=== PATIENT | male | born 1945 | race Caucasian/White ===

== ENCOUNTER 2019-03-19 07:46 | Emergency (ER) | payer OTHER ==
[2019-03-19 07:50] VITALS: BP 162/85
--- NOTE | 2019-03-19 07:56 | ED ---
Skin Complaint - HPI Summary HPI Summary: 73-year-old male presents with complaints of allergic reaction. States 3 days ago he had been out side weeding and later that evening started developing a pruritic rash to his left shoulder, neck, and face with swelling around his eyes. States he had a similar reaction in the past to poison jazmin that required treatment with prednisone. States he has been taking diphenhydramine with minimal improvement in his symptoms. Denies fever, chills, visual disturbances , eye redness, drainage, swelling of the lips, tongue, throat, dysphagia, or difficulty breathing. - History of Current Complaint Chief Complaint: EDAllergicReaction Time Seen by Provider: 03/19/19 07:54 Stated Complaint: POISON JAZMIN PER PT Hx Obtained From: Patient Pain Intensity: 0 - Allergy/Home Medications Allergies/Adverse Reactions: Allergies Allergy/AdvReac Type Severity Reaction Status Date / Time typhus vaccine Allergy Unknown Verified 03/19/19 07:51 Reaction Details PMH/Surg Hx/FS Hx/Imm Hx Endocrine/Hematology History: Reports: Hx Diabetes Cardiovascular History: Reports: Hx Hypercholesterolemia, Hx Hypertension Respiratory History: Denies: Hx Asthma, Hx Chronic Obstructive Pulmonary Disease (COPD) Infectious Disease History: No Infectious Disease History: Denies: Traveled Outside the [place] in Last 30 Days - Family History Known Family History: Positive: Non-Contributory - Social History Occupation: Retired Lives: Alone Review of Systems Negative: Fever, Chills Negative: Photophobia, Blurred Vision, Diplopia, Drainage, Erythema Negative: Other - Swelling lips, tongue, or throat Cardiovascular: Negative Negative: Shortness Of Breath Gastrointestinal: Negative Genitourinary: Negative Musculoskeletal: Negative Positive: Rash - See HPI Neurological: Negative All Other Systems Reviewed And Are Negative: Yes Physical Exam - Summary Physical Exam Summary: GENERAL APPEARANCE: Well developed, well nourished, alert and cooperative, and appears to be in no acute distress. EYES: Mild bilateral periorbital edema. Mild Conjunctiva clear. No drainage. PERRL, EOM intact. Vision is grossly intact. EARS: External auditory canals and tympanic membranes clear, hearing grossly intact. NOSE: No nasal discharge. THROAT: No swelling of the lips, tongue, or throat. Pharynx normal. No tonsilar inflammation, swelling, exudate, or lesions. Uvula midline. Airway patent. NECK: Neck supple, non-tender without lymphadenopathy. CARDIAC: Normal S1 and S2. No S3, S4 or murmurs. Rhythm is regular. There is no peripheral edema, cyanosis or pallor. Extremities are warm and well perfused. Capillary refill is less than 2 seconds. Peripheral pulses intact. LUNGS: Clear to auscultation without rales, rhonchi, wheezing or diminished breath sounds. ABDOMEN: Positive bowel sounds. Soft, nondistended, nontender. No guarding or rebound. No masses or hepatosplenomegally. MUSKULOSKELETAL: ROM intact to all extremities. No joint erythema or tenderness. Normal muscular development. Normal gait. SKIN: Confluent, erythematous, maculopapular rash involving the face, anterior neck, and left posterior shoulder. Triage Information Reviewed: Yes Vital Signs On Initial Exam: Initial Vitals Temp Pulse Resp BP Pulse Ox 98.7 F 78 18 162/85 99 03/19/19 07:46 03/19/19 07:46 03/19/19 07:46 03/19/19 07:46 03/19/19 07:46 Vital Signs Reviewed: Yes Diagnostics - Vital Signs Vital Signs Temp Pulse Resp BP Pulse Ox 03/19/19 07:46 98.7 F 78 18 162/85 99 - Laboratory Lab Statement: Any lab studies that have been ordered have been reviewed, and results considered in the medical decision making process. Course/Dx - Course Course Of Treatment: 73-year-old male presents with complaints of allergic reaction. States 3 days ago he had been out side weeding and later that evening started developing a pruritic rash to his left shoulder, neck, and face with swelling around his eyes. States he had a similar reaction in the past to poison jazmin that required treatment with prednisone. States he has been taking diphenhydramine with minimal improvement in his symptoms. Denies fever, chills , visual disturbances, eye redness, drainage, swelling of the lips, tongue, throat, dysphagia, or difficulty breathing. Afebrile. Hypertensive but otherwise vital signs stable. Patient had a confluent, erythematous, maculopapular rash involving the face, anterior neck, and left posterior shoulder with mild bilateral periorbital edema and otherwise unremarkable exam. Patient was given prednisone 60 mg PO in the ED for an allergic reaction to an unknown substance and we will continue him on a prednisone taper. Recommend continued use of the diphenhydramine according to directions as needed for itching. He is to follow-up with his primary care provider in 3 days if his symptoms do not improve. Anticipatory guidance and warning symptoms were reviewed with the patient. Verbalizes understanding and agrees of care. - Differential Diagnoses - Skin Complaint Differential Diagnoses: Allergic Reaction, Cellulitis, Contact Dermatitis, Poison Jazmin, Urticaria - Diagnoses Provider Diagnoses: Allergic reaction Discharge - Sign-Out/Discharge Documenting (check all that apply): Patient Departure Patient Received Moderate/Deep Sedation with Procedure: No - Discharge Plan Condition: Stable Disposition: HOME Prescriptions: predniSONE TAB* [Deltasone 10 MG TAB*] 10 mg PO DAILY #26 tab Patient Education Materials: General Allergic Reaction (ED) Referrals: Karl Chester MD [Primary Care Provider] - 3 Days Additional Instructions: Your were given a dose of prednisone in the Emergency Room for your allergic reaction. We will continue you on a tapering dose over the next few days. Starting tomorrow take prednisone 40 mg (4 tabs) for 2 days, then 30 mg (3 tabs ) for 3 days, then 20 mg (2 tabs) for 3 days, then 10 mg (1 tab) for 3 days, then stop. Continue taking diphenhydramine (Benadryl) according to directions as needed for itching. Follow-up with your primary care provider in 3 days if symptoms are not improving. Return to the emergency room if you develop any swelling to the lips, tongue, or throat, difficulty swallowing, difficulty breathing, or any worsening of symptoms. - Billing Disposition and Condition Condition: STABLE Disposition: Home
[2019-03-19] MEDS ORDERED: predniSONE TAB* 20 MG PO ONE (08:03)
== END 2019-03-19 08:12 | disposition home or self-care (01) ==
LOC: ED 07:46
DX: T78.40XA Allergy, unspecified, initial encounter (principal); X58.XXXA Exposure to other specified factors, initial encounter; Y92.9 Unspecified place or not applicable; E11.9 Type 2 diabetes mellitus without complications; E78.00 Pure hypercholesterolemia, unspecified; I10 Essential (primary) hypertension; Z88.7 Allergy status to serum and vaccine
CPT/HCPCS: 99282; J7512